=== PATIENT | female | born 1955 | race Caucasian/White ===

== ENCOUNTER 2018-05-23 18:01 | Emergency (ER) | payer MEDICAID, OTHER | END 2018-05-23 21:49 | disposition home or self-care (01) | LOC: FTE 18:01 | DX: S82.891A Other fracture of right lower leg, initial encounter for closed fracture (principal); S63.502A Unspecified sprain of left wrist, initial encounter; W01.0XXA Fall on same level from slipping, tripping and stumbling without subsequent striking against object, initial encounter; Y92.9 Unspecified place or not applicable | CPT/HCPCS: 29515; 73110-LT; 73610-RT; 99284-25 ==

== ENCOUNTER 2018-05-23 23:11 | Emergency (ER) | payer MEDICAID | END 2018-05-24 00:13 | disposition home or self-care (01) | LOC: FTE 05-24 00:13 | DX: R03.0 Elevated blood-pressure reading, without diagnosis of hypertension (principal) | CPT/HCPCS: 99282; Z7502 ==